=== PATIENT | female | born 1985 | race Two or more races ===

== ENCOUNTER 2020-07-09 09:09 | Outpatient (CLI) | payer OTHER ==
[2020-07-09 09:41] LABS: BASOPHILS % (AUTO) 0.5 % (0.0-2.0); EOSINOPHILS # (AUTO) 0.1 K/uL (0-0.4); EOSINOPHILS % (AUTO) 1.1 % (0.0-4.0); HEMATOCRIT 43.3 % (36-48); HEMOGLOBIN 14.9 g/dL (12.0-16.0); LYMPHOCYTES # (AUTO) 2.8 K/uL (2.5-16.5); LYMPHOCYTES % (AUTO) 37.6 % (20.5-51.1); MEAN CORPUSCULAR HEMOGLOBIN 32 pg (27-31); MEAN CORPUSCULAR HGB CONC 35 g/dL (33-37); MEAN CORPUSCULAR VOLUME 91.4 fL (80-94); MONOCYTES # (AUTO) 0.3 K/uL (0.8-1.0); MONOCYTES % (AUTO) 4.6 % (1.7-9.3); NEUTROPHILS # (AUTO) 4.2 K/uL (1.8-7.7); NEUTROPHILS % (AUTO) 56.2 % (42.2-75.2); PLATELET COUNT (AUTO) 334 K/uL (140-450); RED BLOOD CELL COUNT(AUTO) 4.74 MIL/uL (4.20-5.40); RED CELL DISTRIBUTION WIDTH 12.2 % (11.6-13.7); WHITE BLOOD COUNT (AUTO) 7.4 K/uL (4.8-10.8)
[2020-07-09 10:09] LABS: ALBUMIN 4.3 g/dL (3.4-5.0); CHOL/HDL RATIO 3.7 (1-4.5); CREATININE 0.8 mg/dL (0.6-1.3); POTASSIUM 4.2 mmol/L (3.5-5.1); THYROID STIMULATING HORMONE 1.58 uIU/mL (0.34-3.74); TOTAL BILIRUBIN 0.4 mg/dL (0.0-1.0)
[2020-07-09 10:42] LABS: ANION GAP 42.3 (8-16)
[2020-07-10 08:08] LABS: FOLIC ACID > 20.00 ng/mL (>3.0)
== END 2020-07-09 20:50 | disposition home or self-care (01) ==
LOC: MLB 09:09
DX: E55.9 Vitamin D deficiency, unspecified (principal); E28.2 Polycystic ovarian syndrome; D64.9 Anemia, unspecified; Z00.00 Encounter for general adult medical examination without abnormal findings
CPT/HCPCS: 36415; 80053; 82306; 82607; 82746; 83036; 83540; 84443; 85025

== ENCOUNTER 2020-10-06 17:23 | Emergency (ER) | payer OTHER ==
[~2020-10-06] VITALS: Ht 152.4 cm; Wt 77.1 kg
[2020-10-06 17:26] VITALS: BP 105/73
--- NOTE | 2020-10-06 18:10 | NUR ---
Ambulated to bed 6
--- NOTE | 2020-10-06 18:21 | NUR ---
35/F presents to ED with c/o left thigh pain. Patient states she went swimming on Monday evening and has had constant 5/10 left thigh pain radiating to her left buttocks since. Patient states she has also had intermittent fever at home, stating last temp taken was this morning at 100.2 Patient states she has been taking Tylenol and Advil at home with mild relief. Reports pain worsens when walking or touching the site, able to ambulate without assitance. Temperature of 98.0 upon arrival to ED.
[2020-10-06] MEDS ORDERED: NACL 0.9% 1,000 ML IV ONE (18:30)
[2020-10-06] MEDS ORDERED: AMPICILLIN/SULBACTAM 3 GM VIAL IM ONE (19:05)
[2020-10-06] MEDS ORDERED: IBUPROFEN 600 MG TAB PO ONE (19:05)
[2020-10-06 19:06] LABS: BASOPHILS % (AUTO) 0.1 % (0.0-2.0); EOSINOPHILS % (AUTO) 0.1 % (0.0-4.0); HEMATOCRIT 42.6 % (36-48); HEMOGLOBIN 14.4 g/dL (12.0-16.0); LYMPHOCYTES # (AUTO) 0.9 K/uL (2.5-16.5); LYMPHOCYTES % (AUTO) 8.5 % (20.5-51.1); MEAN CORPUSCULAR HEMOGLOBIN 32 pg (27-31); MEAN CORPUSCULAR HGB CONC 34 g/dL (33-37); MEAN CORPUSCULAR VOLUME 94.1 fL (80-94); MONOCYTES # (AUTO) 0.3 K/uL (0.8-1.0); MONOCYTES % (AUTO) 3.1 % (1.7-9.3); NEUTROPHILS % (AUTO) 88.2 % (42.2-75.2); PLATELET COUNT (AUTO) 189 K/uL (140-450); RED BLOOD CELL COUNT(AUTO) 4.53 MIL/uL (4.20-5.40); WHITE BLOOD COUNT (AUTO) 10.1 K/uL (4.8-10.8)
[2020-10-06 19:29] LABS: ALBUMIN 3.5 g/dL (3.4-5.0); ANION GAP 11.3 (8-16); CARBON DIOXIDE 30.4 mmol/L (21-32); CREATININE 0.8 mg/dL (0.6-1.3); POTASSIUM 3.7 mmol/L (3.5-5.1); TOTAL BILIRUBIN 0.5 mg/dL (0.0-1.0)
--- NOTE | 2020-10-06 19:31 | NUR ---
RECEIVED REPORT FROM ROSALINE JEROME, TRANSFER OF CARE AT THIS TIME
--- NOTE | 2020-10-06 19:31 | NUR ---
Pt report given to Kacey. Transfer of care at this time.
[2020-10-06] MEDS ORDERED: AMOX-1000 PO (20:38)
[2020-10-06 20:40] VITALS: BP 114/74
--- NOTE | 2020-10-06 20:54 | NUR ---
Patient does not wish to proceed with medical care recommended by Dr. Espinosa. Patient given information related to possible complications, up to and including , which could occur as a result of leaving hospital at this time. Patient verbalizes understanding of risks involved leaving against medical advice. Patient has signed AMA form.
--- NOTE | 2020-10-06 20:54 | NUR ---
IV removed, catheter intact and site benign. Applied folded 4x4 gauze and tape to stop bleeding.
--- NOTE | 2020-10-06 20:55 | NUR ---
All discharge instructions and medication administration/side effects explained to patient. patient sent home with Rx of augmentin. All questions asked and answered prior to discharge. pt ambulatory to private vehicle in stable condition.
== END 2020-10-06 20:55 | disposition left against medical advice (07) ==
LOC: MED 17:23
DX: L03.116 Cellulitis of left lower limb (principal); Z79.899 Other long term (current) drug therapy
CPT/HCPCS: 36415; 80053; 81002; 81025; 83605; 85025; 87040; 96360; 96372; 99283; J0295; J7030

== ENCOUNTER 2022-03-11 09:51 | Outpatient (CLI) | payer OTHER ==
[~2022-03-11 09:51] MED LIST: AMOX-1000 PO
[2022-03-11 10:23] LABS: BASOPHILS % (AUTO) 0.3 % (0.0-2.0); EOSINOPHILS # (AUTO) 0.1 K/uL (0-0.4); EOSINOPHILS % (AUTO) 0.9 % (0.0-4.0); HEMATOCRIT 40.9 % (36-48); HEMOGLOBIN 14.1 g/dL (12.0-16.0); LYMPHOCYTES # (AUTO) 2.1 K/uL (2.5-16.5); LYMPHOCYTES % (AUTO) 30.4 % (20.5-51.1); MEAN CORPUSCULAR HEMOGLOBIN 32 pg (27-31); MEAN CORPUSCULAR HGB CONC 35 g/dL (33-37); MEAN CORPUSCULAR VOLUME 91.4 fL (80-94); MONOCYTES # (AUTO) 0.3 K/uL (0.8-1.0); MONOCYTES % (AUTO) 4.8 % (1.7-9.3); NEUTROPHILS # (AUTO) 4.4 K/uL (1.8-7.7); NEUTROPHILS % (AUTO) 63.6 % (42.2-75.2); PLATELET COUNT (AUTO) 268 K/uL (140-450); RED BLOOD CELL COUNT(AUTO) 4.48 MIL/uL (4.20-5.40); RED CELL DISTRIBUTION WIDTH 12.1 % (11.6-13.7); WHITE BLOOD COUNT (AUTO) 6.9 K/uL (4.8-10.8)
[2022-03-11 10:45] LABS: ANION GAP 10.4 (8-16); CHOL/HDL RATIO 2.5 (1-4.5); CREATININE 0.8 mg/dL (0.6-1.3); FREE T4 (FREE THYROXINE) 0.99 ng/dL (0.76-1.46); POTASSIUM 4.4 mmol/L (3.5-5.1); THYROID STIMULATING HORMONE 1.23 uIU/mL (0.34-3.74); TOTAL BILIRUBIN 0.6 mg/dL (0.0-1.0)
[2022-03-12 08:07] LABS: FOLLICLE STIMULATING HORMONE 4.7 mIU/mL (.); LUTEINIZING HORMONE 19.6 mIU/mL (.)
== END 2022-03-11 20:22 | disposition home or self-care (01) ==
LOC: MLB 09:51
PROVIDERS: ATTEND Acupuncturist
DX: Z00.01 Encounter for general adult medical examination with abnormal findings (principal); E28.2 Polycystic ovarian syndrome; N92.6 Irregular menstruation, unspecified; Z83.3 Family history of diabetes mellitus
CPT/HCPCS: 36415; 80053; 82670; 83001; 83002; 83036; 84439; 84443; 85025